=== PATIENT | female | born 1995 | race African-American/Black ===

== ENCOUNTER 2021-04-19 06:20 | Emergency (ER) | payer OTHER ==
[~2021-04-19] VITALS: Ht 160 cm; Wt 62.1 kg
[~2021-04-19 06:20] MED LIST: KETO10TA2 PO; METHERGINE PO; MOTRIN800 MG PO
== END 2021-04-19 09:08 | disposition home or self-care (01) ==
LOC: ER 06:20
DX: R10.2 Pelvic and perineal pain (principal); M54.50 Low back pain, unspecified

== ENCOUNTER 2021-08-06 20:53 | Emergency (ER) | payer OTHER ==
[~2021-08-06] VITALS: Ht 160 cm; Wt 59.0 kg
[2021-08-07] MEDS ORDERED: XYZAL5 MG PO (02:47)
== END 2021-08-07 03:01 | disposition home or self-care (01) ==
LOC: ER 20:53
DX: L29.8 Other pruritus (principal)

== ENCOUNTER 2021-10-13 04:59 | Emergency (ER) | payer OTHER ==
[~2021-10-13] VITALS: Ht 160 cm; Wt 5.9 kg
[~2021-10-13 04:59] MED LIST changes: +XYZAL5 MG PO
[2021-10-13] MEDS ORDERED: NORFLEX100MG PO (07:52)
[2021-10-13] MEDS ORDERED: DICLOFENAC POTA50 MG PO (07:52)
== END 2021-10-13 08:49 | disposition home or self-care (01) ==
LOC: ER 04:59
DX: R07.89 Other chest pain (principal); M94.0 Chondrocostal junction syndrome [Tietze]; Z20.822 Contact with and (suspected) exposure to COVID-19

== ENCOUNTER → 2021-10-23 | Emergency (ER) | payer OTHER ==
[~2021-10-23] VITALS: Ht 160 cm; Wt 62.1 kg
[~2021-10-23] MED LIST changes: +DICLOFENAC POTA50 MG PO; +NORFLEX100MG PO; +RELAFEN DS1000 MG PO
== END | disposition left against medical advice (07) ==
LOC: ER 13:20
DX: Z53.21 Procedure and treatment not carried out due to patient leaving prior to being seen by health care provider (principal)

== ENCOUNTER 2022-03-05 14:24 | Emergency (ER) | payer OTHER ==
[~2022-03-05] VITALS: Ht 160 cm; Wt 62.1 kg
[2022-03-05] MEDS ORDERED: MEDROLPACK PO (19:14)
[2022-03-05] MEDS ORDERED: ZITHROMAX500 MG PO (19:14)
== END 2022-03-05 19:20 | disposition home or self-care (01) ==
LOC: EMR PED 14:24 → ER 14:26 → EMR PED 14:26 → ER 19:20
DX: J06.9 Acute upper respiratory infection, unspecified (principal); Z20.828 Contact with and (suspected) exposure to other viral communicable diseases

== ENCOUNTER 2022-07-13 15:25 | Emergency (ER) | payer OTHER ==
[~2022-07-13] VITALS: Ht 160 cm; Wt 65.3 kg
[~2022-07-13 15:25] MED LIST changes: +MEDROLPACK PO; +ZITHROMAX500 MG PO
[2022-07-13] MEDS ORDERED: PRENATAL 19 TA1 EAC2 (15:50)
== END 2022-07-13 18:45 | disposition home or self-care (01) ==
LOC: ER 15:25
DX: R07.89 Other chest pain (principal)